=== PATIENT | male | born 1950 | race Caucasian/White ===

== ENCOUNTER 2017-03-01 10:47 | Day surgery (SDC) | payer MEDICARE, OTHER ==
[2017-03-01] MEDS ORDERED: LACTATED RINGERS 1,000 ML IV ONE (11:16)
[2017-03-01] MEDS ORDERED: MORPHINE 10 MG/ML VIAL IVP ONE (12:40)
[2017-03-01] MEDS ORDERED: fentaNYL 100 MCG/2 ML VIAL IVP ONE (12:40)
[2017-03-01 14:11] VITALS: BP 127/82
== END 2017-03-01 10:48 | disposition home or self-care (01) ==
LOC: SDS 10:47
PROVIDERS: ATTEND Surgery
PROC: 0DBM8ZX Excision of Descending Colon, Via Natural or Artificial Opening Endoscopic, Diagnostic (ICD-10-PCS; 2017-03-01)
PROC: 0DBL8ZX Excision of Transverse Colon, Via Natural or Artificial Opening Endoscopic, Diagnostic (ICD-10-PCS; principal; 2017-03-01 12:00)
DX: Z12.11 Encounter for screening for malignant neoplasm of colon (principal); D12.3 Benign neoplasm of transverse colon; D12.4 Benign neoplasm of descending colon; K64.8 Other hemorrhoids; E78.5 Hyperlipidemia, unspecified
CPT/HCPCS: 45380; 45385; J7120

== ENCOUNTER 2018-07-14 23:26 | Emergency (ER) | payer MEDICARE, OTHER ==
[2018-07-14 23:33] VITALS: BP 163/84
--- NOTE | 2018-07-15 00:36 | ED Physician Documentation ---
PD HPI HEENT - Stated complaint Stated Complaint: BLODDY NOSE - Chief complaint Chief Complaint: Heent - History obtained from History obtained from: Patient - History of Present Illness Timing - onset: Enter time (22:00) Timing - duration: Hours Timing - details: Abrupt onset, Intermittant Pain level max: 0 Pain level now: 0 Location: Nose - Additional information Additional information: sudden onset right-sided nose bleed, atraumatic. He has had similar but milder and self-limited episodes over the past 2 weeks Review of Systems Nose: reports: Epistaxis PD PAST MEDICAL HISTORY - Past Medical History Past Medical History: Yes Cardiovascular: Hypertension, High cholesterol Respiratory: None Endocrine/Autoimmune: None GI: None : None HEENT: Chronic hearing loss Psych: None Musculoskeletal: Chronic back pain Derm: Other - Past Surgical History Past Surgical History: No General: Hiatal hernia repair, Colonoscopy, Other Ortho: Other HEENT: Cataracts Derm:  - Present Medications Home Medications: Ambulatory Orders Medication Instructions Recorded Confirmed Aspirin 81 mg PO DAILY 11/02/12 02/28/17 Simvastatin [Zocor] 40 mg PO DAILY 11/02/12 02/28/17 - Allergies Allergies/Adverse Reactions: Allergies Allergy/AdvReac Type Severity Reaction Status Date / Time No Known Drug Allergies Allergy Verified 07/14/18 23:33 - Social History Does the pt smoke?: No Smoking Status: Never smoker Does the pt drink ETOH?: Yes Does the pt have substance abuse?: No - Immunizations Immunizations are current?: Yes - POLST Patient has POLST: No PD ED PE NORMAL - Vitals Vital signs reviewed: Yes - General General: Alert and oriented X 3, No acute distress, Well developed/nourished - HEENT HEENT: Moist mucous membranes - Derm Derm: Normal color, Warm and dry PD ED PE EXPANDED - HEENT HEENT: Right nares epsitaxis (brisk, pulsatile bleeding from punctate (visualized) source anterior right septum at base of septum) Results - Vitals Vitals: Oxygen O2 Source Room air Procedures - Epistaxis Site: Right, Anterior Preparation: Afrin, Lidocaine, Clamp / pressure applied Treatment: Silver Nitrate Other: Observed - no bleeding, Pt tolerated well PD MEDICAL DECISION MAKING - ED course Complexity details: re-evaluated patient, considered differential, d/w patient, d/w family Departure - Departure Disposition: 01 Home, Self Care Clinical Impression: Epistaxis Condition: Good Instructions: ED Nosebleed Follow-Up: DEEDEE MACHUCA DO [Primary Care Provider] - Discharge Date/Time: 07/15/18 02:52
[2018-07-15] MEDS: OXYMETAZOLINE NASAL SPRAY NAS STA (02:22)
[2018-07-15] MEDS: LIDOCAINE VISCOUS 2% 15 ML UDC MM STA (02:22)
== END 2018-07-15 02:52 | disposition home or self-care (01) ==
LOC: ED 23:26
DX: R04.0 Epistaxis (principal); I10 Essential (primary) hypertension; E78.00 Pure hypercholesterolemia, unspecified
CPT/HCPCS: 30901; 99282; 99283

== ENCOUNTER 2019-09-05 09:57 | Outpatient (CLI) | payer MEDICARE, OTHER | END 2019-09-05 09:58 | disposition home or self-care (01) | LOC: COV 09:57 | PROVIDERS: ATTEND Surgery | DX: Z01.812 Encounter for preprocedural laboratory examination (principal); K40.90 Unilateral inguinal hernia, without obstruction or gangrene, not specified as recurrent | CPT/HCPCS: 81599 ==

== ENCOUNTER 2019-09-09 08:04 | Day surgery (SDC) | payer MEDICARE, OTHER ==
[~2019-09-09 08:04] MED LIST: BUPIVACAINE 0.25% PF 30 ML VIAL ONE; LIDOCAINE 1%-EPI 1:100000 20 ML MDV ONE
[2019-09-09] MEDS ORDERED: MIDAZOLAM 2 MG/2 ML VIAL IVP ONE (08:05)
[2019-09-09] MEDS ORDERED: fentaNYL 100 MCG/2 ML VIAL IVP ONE (08:05)
[2019-09-09] MEDS ORDERED: PROPOFOL 200 MG/20 ML VIAL IVP ONE (08:05)
[2019-09-09] MEDS ORDERED: LACTATED RINGERS 1,000 ML IV ONE (08:11)
--- NOTE | 2019-09-09 08:19 | ANESTHESIA ---
Pre-Anesthesia VS, & Labs - Diagnosis left inguinal hernia - Procedure open left inguinal hernia repair Vital Signs: Temp Pulse Resp BP Pulse Ox 36.5 C 66 18 144/90 H 97 09/09/19 08:11 09/09/19 08:11 09/09/19 08:11 09/09/19 08:11 09/09/19 08:11 Height 5 ft 4 in Body Mass Index 24.0 - NPO >8 hours Home Medications and Allergies Aspirin 81 mg PO DAILY 11/02/12 Simvastatin [Zocor] 40 mg PO DAILY 11/02/12 Allergies/Adverse Reactions: Allergies Allergy/AdvReac Type Severity Reaction Status Date / Time No Known Drug Allergies Allergy Verified 07/14/18 23:33 Anes History & Medical History - Anesthetic History Anesthesia Complications: reports: No previous complications Family history of Anesthesia Complications: Denies Family history of Malignant Hyperthermia: Denies - Medical History Cardiovascular: reports: Hypertension, High cholesterol Pulmonary: reports: None Gastrointestinal: reports: None Urinary: reports: None Neuro: reports: None Musculoskeletal: reports: Chronic back pain Endocrine/Autoimmune: reports: None Blood Disorders: reports: None Skin: reports: Other Smoking Status: Never smoker Psychosocial: reports: No issues indicated - Surgical History General: Hiatal hernia repair, Colonoscopy, Other Eyes Ears Nose Throat (EENT): Cataracts Orthopedic: Other Dermatologic:  Exam General: Alert, Oriented x3, Cooperative, No acute distress Dental: WNL Mouth Openin Fingerbreadth Neck Mobility: Normal Mallampati classification: II Thyromental Distance: 4-6 cm Respiratory: Lungs clear, Normal breath sounds, No respiratory distress, No accessory muscle use Cardiovascular: Regular rate, Normal S1, Normal S2, No murmurs Abdomen: Normal bowel sounds, Soft, No tenderness, No hepatospenomegaly, No masses Extremities: No clubbing, No cyanosis, No edema, Normal pulses, No tenderness/swelling Neurological: Normal gait, Normal speech, Strength at 5/5 X4 ext, Normal tone, Sensation intact, Cranial nerves 3-12 NL, Reflexes 2+ Mental/Cognitive Status: Alert/Oriented X3, Normal for patient Cognitive Status: Within normal limits Plan Anesthesia Type: General Consent for Procedure(s) Verified and Reviewed: Yes Code Status: Attempt Resuscitation ASA classification: 2-Mild systemic disease Is this case an emergency?: No
[2019-09-09] MEDS ORDERED: CEFAZOLIN SODIUM IN 0.9 % NACL 2 GM/100 ML BAG IV ONE (08:30)
[2019-09-09] MEDS ORDERED: BUPIVACAINE 0.25% PF 30 ML VIAL SUBQ ONE ×2 (09:06)
[2019-09-09] MEDS ORDERED: LIDOCAINE 1%-EPI 1:100000 20 ML MDV SUBQ ONE (09:07)
[2019-09-09] MEDS ORDERED: BUPIVACAINE 0.25% PF 30 ML VIAL ONE (09:12)
[2019-09-09] MEDS ORDERED: HYDROcod/ACETAM 5/325 MG TABLET PO PRN (10:06)
[2019-09-09 10:26] VITALS: BP 130/73
--- NOTE | 2019-09-09 11:13 | OPERATIVE REPORT ---
DATE OF SERVICE: 09/09/2019 Physician: Gordon Forrest MD PREOPERATIVE DIAGNOSIS: Left inguinal hernia, likely indirect. POSTOPERATIVE DIAGNOSIS: Left inguinal hernia, indirect. PROCEDURE PERFORMED: Open left inguinal hernia repair with mesh Sanjeev. SURGEON: Jonah Forrest MD TAMPING MACHINE OPERATOR: None. ANESTHESIA: Monitored anesthesia care, IV sedation and local anesthesia. COMPLICATIONS: None. SPECIMEN: Indirect hernia sac removed. However, not sent for pathology. ESTIMATED BLOOD LOSS: None. COMPLICATIONS: None. DRAINS: None. PROSTHETIC: Polypropylene mesh. FINDINGS: A slightly atypical nerve anatomy. The ilioinguinal nerve was kept with the cord structur es. He had an additional nerve, which may have been a branch of the ilioinguinal nerve or aberrant i liohypogastric nerve. This went in a medial direction towards the subcutaneous tissue. It was sharp ly mobilized to allow placement of mesh without tension on the nerve. INDICATIONS FOR PROCEDURE: The patient is a healthy, active 68-year-old gentleman with a distant his tory of right inguinal hernia repair. He has developed a symptomatic left inguinal hernia. At times , he has a large painful bulge. He presents for open repair with mesh. Risks discussed, alternative s discussed. All questions answered and consent obtained. DESCRIPTION OF PROCEDURE: The patient was properly identified, brought to the operating room and gabino anahi in supine position. Voided prior to surgery. Monitored anesthesia care was given. He was prepp ed and draped in a sterile fashion and given preoperative antibiotics. Local anesthetic was given th roughout the procedure. A 5 to 6 cm incision was made in the direction of Sage's lines just cephal ad and lateral of the pubic tubercle. Dissection proceeded with cutting current. Patient had 2 supe rficial epigastric vessels. Both were separately clamped, divided, and tied with 3-0 Vicryl. Dissec tion proceeded down to the aponeurosis. The aponeurosis was opened in the direction of its fibers ex tending to the external ring. The cord structures were mobilized and brought up. The ilioinguinal n erve was kept with the cord structures. And as above an aberrant nerve was carefully mobilized. He had weakness of the floor as well as a chronic indirect hernia sac. The hernia sac was mobilized pineda y from the cord structures, clamped, divided, and suture ligated with a 2-0 silk. The stump of the t ied off peritoneum was further mobilized towards the retroperitoneum. A polypropylene mesh was then cut to size with tails and placed in Sanjeev fashion. It was secured with multiple interrupted 0 Ethibond sutures. Sutures were placed at the pubic tubercle along the shelving border of Poupart's ligament and medially along the musculature of the internal oblique. Very little fascia was present . The medial tail of the mesh was secured to the shelving border of Poupart's ligament with 2 interr upted 0 Ethibond sutures, recreating the internal ring of appropriate size. The aponeurosis was then closed with a running 2-0 Vicryl suture. Kapil's was closed with interrupted 3-0 Vicryl suture. B uried interrupted subdermal 3-0 Vicryl sutures were then placed. Skin was closed with a running 4-0 Monocryl subcuticular suture. Dressing was applied. He tolerated the procedure very well. TD: 09/09/2019 10:20
== END 2019-09-09 08:05 | disposition home or self-care (01) ==
LOC: SDS 08:04
PROVIDERS: ATTEND Surgery
DX: K40.90 Unilateral inguinal hernia, without obstruction or gangrene, not specified as recurrent (principal); I10 Essential (primary) hypertension
CPT/HCPCS: 49505; C1781; J0690; J7120

== ENCOUNTER 2023-10-19 11:14 | Day surgery (SDC) | payer MEDICARE, OTHER ==
[2023-10-19] MEDS: LACTATED RINGERS 1,000 ML IV ONE ×2 (11:24→14:38)
[2023-10-19] MEDS ORDERED: PROPOFOL 500 MG/50 ML 500 MG/50 ML VIAL ONE (11:34)
--- NOTE | 2023-10-19 13:38 | ANESTHESIA ---
Pre-Anesthesia VS, & Labs - Diagnosis hx polyps - Procedure colonoscopy Vital Signs: Temp Pulse Resp BP Pulse Ox O2 Flow Rate 36.5 C 70 17 129/79 97 10/19/23 11:42 10/19/23 11:42 10/19/23 11:42 10/19/23 11:42 10/19/23 11:42 Height: 5 ft 4 in Weight (kg): 63.8 kg Body Mass Index: 24.1 BMI Classification: Normal - NPO Last Fluid Intake: 09 Last Food Intake: >8hr Home Medications and Allergies Home Medications: Ambulatory Orders Amlodipine Besylate [Norvasc] 5 mg ORAL HS 10/17/23 Lisinopril [Zestril] 10 mg PO HS 10/17/23 Omeprazole 20 mg PO HS 10/17/23 diphenhydrAMINE [Benadryl] 25 mg PO Q4HR PRN 10/17/23 Aspirin 81 mg PO HS 11/02/12 Simvastatin [Zocor] 40 mg PO HS 11/02/12 Amlodipine Besylate [Norvasc] 5 mg ORAL HS 10/17/23 Lisinopril [Zestril] 10 mg PO HS 10/17/23 Omeprazole 20 mg PO HS 10/17/23 diphenhydrAMINE [Benadryl] 25 mg PO Q4HR PRN 10/17/23 Allergies/Adverse Reactions: Allergies Allergy/AdvReac Type Severity Reaction Status Date / Time No Known Drug Allergies Allergy Verified 10/17/23 12:21 Anes History & Medical History - Anesthetic History Anesthesia Complications: reports: No previous complications Family history of Anesthesia Complications: Denies - Medical History Cardiovascular: reports: Hypertension (meds yesterday, denies c/p sob/ getting 12 lead ekg), High cholesterol Pulmonary: reports: None Gastrointestinal: reports: GERD, Colon polyps Urinary: reports: None Neuro: reports: None Musculoskeletal: reports: None Endocrine/Autoimmune: reports: None Blood Disorders: reports: None Skin: reports: None Smoking Status: Never smoker Psychosocial: reports: Alcohol (6 beers per day) - Surgical History General: reports: Other Eyes Ears Nose Throat (EENT): reports: Cataracts Orthopedic: reports: Other Dermatologic: Results - EKG Results EKG Comparison: Reviewed EKG Exam General: Alert, Oriented x3 Dental: WNL Mouth Openin Fingerbreadth Neck Mobility: Normal Mallampati classification: II Thyromental Distance: 4-6 cm Respiratory: Lungs clear Cardiovascular: Regular rate Plan Anesthesia Type: Total IV Consent for Procedure(s) Verified and Reviewed: Yes Code Status: Attempt Resuscitation ASA classification: 2-Mild systemic disease Is this case an emergency?: No
[2023-10-19] MEDS ORDERED: PROPOFOL 200 MG/20 ML VIAL IVP ONE (14:27)
--- NOTE | 2023-10-19 15:01 | ANESTHESIA POST OP EVALUATION ---
Anesthesia Post Eval - Post Anesthesia Eval Vitals: Last Vital Signs Temp 36.2 C L 10/19/23 14:55 Pulse 75 10/19/23 14:55 Resp 20 10/19/23 14:55 BP 98/77 10/19/23 14:55 Pulse Ox 97 10/19/23 14:55 O2 Flow Rate CV Function Including HR & BP: Stable Pain Control: Satisfactory Nausea & Vomiting: Negative Mental Status: Baseline Respiratory Status: Airway Patent Hydration Status: Satisfactory Anesthesia Complications: None
[2023-10-19 15:05] VITALS: O2SAT 97
[2023-10-19 15:15] VITALS: BP 118/70
== END 2023-10-19 11:15 | disposition home or self-care (01) ==
LOC: SDS 11:14
PROVIDERS: ATTEND Surgery
PROC: 0DBL8ZZ Excision of Transverse Colon, Via Natural or Artificial Opening Endoscopic (ICD-10-PCS; 2023-10-19)
PROC: 0DBM8ZZ Excision of Descending Colon, Via Natural or Artificial Opening Endoscopic (ICD-10-PCS; 2023-10-19)
PROC: 0DBH8ZX Excision of Cecum, Via Natural or Artificial Opening Endoscopic, Diagnostic (ICD-10-PCS; 2023-10-19)
PROC: 0DBK8ZX Excision of Ascending Colon, Via Natural or Artificial Opening Endoscopic, Diagnostic (ICD-10-PCS; principal; 2023-10-19 12:30)
DX: Z12.11 Encounter for screening for malignant neoplasm of colon (principal); K63.5 Polyp of colon; D12.3 Benign neoplasm of transverse colon; K57.30 Diverticulosis of large intestine without perforation or abscess without bleeding; K63.89 Other specified diseases of intestine; I10 Essential (primary) hypertension
CPT/HCPCS: 45380; 93005; J7120